=== PATIENT | female | born 1995 | race Two or more races ===

== ENCOUNTER 2019-11-17 12:10 | Inpatient (IN) | payer OTHER ==
[~2019-11-17] VITALS: Ht 154.9 cm; Wt 70.8 kg
[2019-12-03] MEDS ORDERED: PRENATABS RX T1 EACH PO (10:35)
[2019-12-05] MEDS ORDERED: IBU600 MG PO (07:58)
== END 2019-12-05 10:21 | disposition home or self-care (01) | DRG 788 ==
LOC: LDR 12-03 10:20 → OB/GYN 12-03 16:18 → LDR 12-13 14:00
PROVIDERS: Obstetrics & Gynecology; ADMIT Specialist; ATTEND Specialist
PROC: 4A1HXFZ Monitoring of Products of Conception, Cardiac Rhythm, External Approach (ICD-10-PCS; 2019-12-03)
PROC: 3E033VJ Introduction of Other Hormone into Peripheral Vein, Percutaneous Approach (ICD-10-PCS; 2019-12-03)
PROC: 10D00Z1 Extraction of Products of Conception, Low, Open Approach (ICD-10-PCS; principal; 2019-12-03 14:30)
DX: O62.1 Secondary uterine inertia (principal); Z3A.38 38 weeks gestation of pregnancy; Z37.0 Single live birth; Z20.828 Contact with and (suspected) exposure to other viral communicable diseases